=== PATIENT | male | born 1985 | race Caucasian/White ===

== ENCOUNTER → 2016-09-26 | Outpatient (CLI) | payer MEDICAID ==
--- NOTE | 2016-09-26 13:29 | MR ---
EXAMINATION TYPE: MR hand LT wo con DATE OF EXAM: 09/26/2016 COMPARISON: NONE HISTORY: sprain of metacarpophalangeal lt thumb, pain, limited movement Standard multiplanar, multisequence MRI departmental protocol Multiplanar, multisequence images of the the left thumb were acquired. Diffusion weighted imaging was performed. FINDINGS: The ACL is intact. There is thickening of the RCA L. At the MCL insertion on the metacarpal , there is some cystic change within the metacarpal head. There is some mild remodeling change in the first MCP joint. IMPRESSION: 1. INTACT UCL. 2. THICKENED RCL WITH PSEUDOCYSTIC CHANGE AT ITS INSERTION UPON THE METACARPAL HEAD SUGGESTS OLD TRAU MA OR RECURRENT TRAUMA. 3. MILD CHANGES OF OSTEOARTHRITIS AT LEFT FIRST MCP JOINT.
== END | disposition home or self-care (01) ==
LOC: RADMRIMAIN 07:14
PROVIDERS: ATTEND Orthopaedic Surgery
DX: M19.042 Primary osteoarthritis, left hand (principal); M25.842 Other specified joint disorders, left hand

== ENCOUNTER → 2017-04-08 | Outpatient (CLI) | payer MEDICAID ==
--- NOTE | 2017-04-08 08:55 | MR ---
MRI CERVICAL SPINE: CLINICAL HISTORY: Cervicalgia per order. Headache with neck pain for 3 years per patient. TECHNIQUE: Multiplanar, multisequence imaging of the cervical spine is performed without IV contrast. COMPARISON: MRI cervical spine September 29, 2013. Cervical spine x-ray August 16, 2013. FINDINGS: Sagittal images of the cervical spine show the craniocervical junction to remain within nor mal limits. There is better visualization of few small mucous retention cysts or polyps in the inferi or left maxillary sinus on sagittal image 1. The cervical and upper thoracic spinal cord is normal i n course, caliber, and signal. Vertebral alignment is anatomic. The vertebral body and intravertebr al disk heights are normal. No large posterior disc herniations are seen on sagittal images. The bon e marrow signal intensity is within normal limits. No significant spurring is present. Axial images show there is broad disc protrusion mildly effacing anterior thecal sac at C5-C6 level, bilateral neural foramina are minimally narrowed. Axial images otherwise are unremarkable. IMPRESSION: Small disc herniation C5-C6 level otherwise unremarkable study.
== END | disposition home or self-care (01) ==
LOC: RADMRIMAIN 08:16
PROVIDERS: ATTEND Psychiatry & Neurology Neurology
DX: M50.222 Other cervical disc displacement at C5-C6 level (principal)
CPT/HCPCS: 72141

== ENCOUNTER → 2018-06-25 | Outpatient (CLI) | payer MEDICAID ==
--- NOTE | 2018-06-26 11:57 | MR ---
EXAMINATION TYPE: MR shoulder RT wo con DATE OF EXAM: 06/25/2018 COMPARISON: None HISTORY: Pain in right shoulder TECHNIQUE: Multiplanar, multisequence imaging of the right shoulder is performed without contrast. FINDINGS: Rotator Cuff: There is a bursal surface tear of the insertional fibers of the supraspinatus in their midportion measuring 0.6 x 1.0 cm. There is slight fraying of the articular surface fibers anteriorly such as on coronal PD fat-sat image 12. The infraspinatus demonstrates very minimal tendinopathy with alteration of the intrinsic fiber signa l. The subscapularis and teres minor are unremarkable in signal and morphology. Acromioclavicular Joint: Mild acromioclavicular arthropathy is seen as capsular hypertrophy, slight d ownsloping of the acromion and small marginal osteophytes. No significant internal impingement of the supraspinatus. Glenohumeral Joint: No significant joint space narrowing. Labrum: The labrum appears grossly intact given limitation of non-arthrogram study. Biceps Tendon: The long head of biceps is in normal location within bicipital groove. Bone marrow signal: No focal abnormal marrow signal is appreciated. Other: Minimal amount of fluid is seen within the subdeltoid/subacromial bursa. IMPRESSION: 1. Low-grade partial-thickness bursal surface tear of the mid insertional fibers of the supraspinatus measuring 0.6 x 1.0 cm. 2. Mild fraying of the anterior insertional fibers of the supraspinatus indicative of mild tendinopat hy. Very minimal tendinopathy of the infraspinatus is also seen. 3. Trace amount of fluid in the subdeltoid/subacromial bursa that may clinically correlate with bursi tis.
== END | disposition home or self-care (01) ==
LOC: RADMRIMAIN 14:52
PROVIDERS: ATTEND Orthopaedic Surgery
DX: M75.111 Incomplete rotator cuff tear or rupture of right shoulder, not specified as traumatic (principal); M67.813 Other specified disorders of tendon, right shoulder

== ENCOUNTER → 2018-07-08 | Outpatient (CLI) | payer MEDICAID ==
[2018-07-08 11:39] LABS: Basophils % (A) 1 %; Eosinophils # (A) 0.2 k/uL (0-0.7); Eosinophils % (A) 3 %; HCT 50.5 % (39.0-53.0); Lymphocytes # (A) 2.2 k/uL (1.0-4.8); Lymphocytes % (A) 39 %; MCH 29.9 pg (25.0-35.0); MCHC 33.7 g/dL (31.0-37.0); MCV 88.7 fL (80.0-100.0); Mean Platelet Volume 7.3; Monocytes # (A) 0.3 k/uL (0-1.0); Monocytes % (A) 5 %; Neutrophils # (A) 2.9 k/uL (1.3-7.7); Neutrophils % (A) 52 %; Platelet Count 246 k/uL (150-450); RBC 5.69 m/uL (4.30-5.90); RDW 13.8 % (11.5-15.5); WBC 5.6 k/uL (3.8-10.6)
[2018-07-08 19:57] LABS: Anion Gap 6.5 mmol/L (4.00-12.00); Carbon Dioxide 29.5 mmol/L (21.6-31.8); Potassium 4.2 mmol/L (3.5-5.5)
== END ==
LOC: LABWHC1 10:44
PROVIDERS: ATTEND Orthopaedic Surgery
DX: Z01.812 Encounter for preprocedural laboratory examination (principal); M75.41 Impingement syndrome of right shoulder
CPT/HCPCS: 36415; 80051; 85025

== ENCOUNTER 2018-07-15 06:22 | Day surgery (SDC) | payer MEDICAID ==
[2018-07-13 16:05] VITALS: BMI 24.4
--- NOTE | 2018-07-14 13:05 | HP ---
HISTORY AND PHYSICAL DATE OF SURGERY: 07/15/2018 Davian Rodriguez is a 33-year-old patient seen with progressive right shoulder pain. Treatment options were discussed. He elected to proceed with arthroscopy. Consent was obtained. PAST MEDICAL HISTORY: Noncontributory. PAST SURGICAL HISTORY: Lasix surgery. MEDICATIONS: [id number] vitamins. ALLERGIES: None. SOCIAL HISTORY: Denies tobacco use. PHYSICAL EVALUATION OF THE RIGHT SHOULDER: Flexion is 150 degrees, abduction is 120 degrees, external rotation is 60 degrees. Some weakness. Impingement sign is positive at 100 degrees. Distal neurovascular exam is intact. RADIOGRAPHS OF THE RIGHT SHOULDER: Revealed a type 2 anterior acromion. MRI of the right shoulder revealed a partial rotator cuff tear. IMPRESSION: Right shoulder impingement with rotator cuff tear. PLAN: Right shoulder arthroscopy with subacromial decompression, possible arthroscopic rotator cuff repair and debridement. EVE / LAINEY: [id number] /
[~2018-07-15 06:22] MED LIST: DEXAMETHASONE SOD PHOSPHATE 10 MG/ML 1 ML VIAL IV ONE; HYDROmorphone 0.5 MG/0.5 ML SYRINGE IVP PRN; LIDOCAINE 1% 20 ML VIAL (10MG/ML) FOR IV START INTRADERMA PRN; ONDANSETRON 4 MG/2 ML VIAL IVP ONE; SCOPOLAMINE 1.5MG/72HR PATCH TRANSDERM ONE; ceFAZolin IN SWFI 2 GM/20 ML SYRINGE IVP ONE
[2018-07-15] MEDS: LACTATED RINGERS 1,000 ML IV SCH ×2 (07:00→10:00)
[2018-07-15] MEDS ORDERED: MIDAZOLAM 2 MG/2 ML VIAL IV ONE (07:23)
--- NOTE | 2018-07-15 07:36 | P.ONQ ---
Anesthesiology Proc Note - PNB - Peripheral Nerve Block Performed Right Interscalene Single Time Out Performed: Yes Procedure Start Time: :24 Procedure Stop Time: :30 Indication: Acute Post-Operative Pain, Requested by physician (Dr Mehta) Sedation Type: Sedate with meaningful contact maintained Preparation: Sterile Prep Position: Supine Catheter: None Needle Types: On-Q Needle Size: 50mm (2") Needle Gauge: 20 Technique: Ultrasound Injectate: 0.5% Ropivacaine (see comment for volume) (30 mls) Blood Aspirated: No Pain Paresthesia on Injection Noted: No Resistance on Injection: Normal Events: Uneventful and Well Tolerated
[2018-07-15] MEDS ORDERED: MIDAZOLAM 2 MG/2 ML VIAL ONE (07:55)
[2018-07-15] MEDS ORDERED: PROPOFOL 10 MG/ML 20 ML VIAL IV ONE (07:55)
[2018-07-15] MEDS ORDERED: fentaNYL (PF) 50 MCG/ML 2 ML AMP ONE (07:55)
[2018-07-15] MEDS ORDERED: DEXAMETHASONE SOD PHOS (MDV) 100 MG/10 ML VIAL ONE (07:55)
[2018-07-15] MEDS ORDERED: LIDOCAINE 1% INJ 10MG/ML (20 ML MDV) ONE (07:55)
[2018-07-15] MEDS ORDERED: SUCCINYLCHOLINE CHLORIDE 100 MG/5 ML SYR IV ONE (07:55)
[2018-07-15] MEDS ORDERED: ROPIVACAINE 5 MG/ML 30 ML VIAL ONE (07:55)
[2018-07-15] MEDS ORDERED: ONDANSETRON 4 MG/2 ML VIAL ONE (07:55)
[2018-07-15 09:30] VITALS: TEMP 97
--- NOTE | 2018-07-15 09:35 | P.OP ---
Date of Procedure: 07/15/18 Preoperative Diagnosis: Right shoulder impingement Postoperative Diagnosis: 1. Right shoulder rotator cuff tear 2. Right shoulder impingement 3. Right shoulder acromioclavicular joint osteoarthritis 4. Right shoulder superficial anterior labral tear Procedure(s) Performed: 1. Right shoulder arthroscopic rotator cuff repair 2. Right shoulder arthroscopic subacromial decompression 3. Right shoulder arthroscopic Davey procedure 4. Right shoulder arthroscopic debridement labral tear Implants: 14.75 Arthrex swivel lock anchor Anesthesia: GETA, regional (Interscalene block) Surgeon: Juan Carlos Mehta Manager Entry #1: Kanu Rosales Estimated Blood Loss (ml): 10 Pathology: none sent Condition: stable Disposition: PACU Indications for Procedure: 33-year-old patient seen with progressive right shoulder pain. After having treatment options discussed, he elected to proceed with arthroscopy. Operative Findings: See description of procedure Description of Procedure: Patient underwent an interscalene block by department of anesthesia FOR postoperative pain management. The patient was then taken to the operative suite. The patient underwent a general anesthetic by the department of anesthesia. The patient was placed into a lateral position and secured. There was appropriate padding of the bony prominence. Right shoulder was then prepped and draped in normal sterile orthopedic fashion. We placed the extremity in 10 pounds of longitudinal traction. A posterior incision was now made for a posterior working portal site. The trocar and cannula were inserted into the glenohumeral joint. Arthroscopy was initiated. Spinal needle was now inserted anteriorly, to ascertain the anterior working portal site. An incision was now made in that area, a trocar was inserted followed by a probe. There was superficial labral tear involving the anterior labrum. There was an area of grade 1/2 chondromalacia in the central portion of the glenoid with no ost eochondral tears present. The biceps appeared stable. I could visualize rotator cuff tear from the glenohumeral side. I debrided that superficial labral tear down to stable tissue. The residual labrum was probed and found to be stable. Instruments removed from glenohumeral joint. Utilizing the posterior working portal site, the trocar and cannula were inserted into the subacromial space. Arthroscopy initiated. I made an incision 2 fingerbreadths lateral to the acromion. I introduced my trocar followed by my ArthroCare ablator. I now began ablating thick subacromial bursal tissue, which exposed the undersurface of the anterior acromion. There was diminished subacromial space. There was a very prominent anterior acromion. A motorized bur was introduced and a subacromial decompression was performed. I also excised some osteophytes off the inferior aspect of the distal clavicle. The AC joint was visualized and noted to be fairly arthritic. The motorized bur was introduced in the anterior portal site and a Davey procedure was performed without difficulty, decompressing the AC joint nicely. I turned my attention to the rotator cuff. There was a 11.5 cm rotator cuff tear. I debrided the margins getting down to stable tendon tissue. The defect now measured 1.5 cm. It was freely mobile over the footprint. I introduced my motorized bur and abraded the footprint area, getting some petechial bleeding. I passed 2 everted mattress sutures through good bites of rotator cuff tendon. With the assistance Efrain MARIE I repaired the tendon utilizing one single 4.75 Arthrex swivel lock anchor. All residual suture limbs were now clipped. We had good compression of the tendon along the entire footprint. I injected 1 mL Renue intra-articular. Instruments now removed from the portal sites. All portal sites were approximated with nylon suture. Sterile dressings were applied followed by a shoulder immobilizer. Kanu MARIE assisted in this complex case. The patient was awakened, transferred to a bed, and taken to recovery in stable condition.
[2018-07-15] MEDS ORDERED: MEPERIDINE 50 MG/ML SYRINGE IVP ONE (09:44)
[2018-07-15 11:23] VITALS: BP 130/85; PULSE 85; RESP 16
== END 2018-07-15 11:57 | disposition home or self-care (01) ==
LOC: OR 06:22
PROVIDERS: ATTEND Orthopaedic Surgery
DX: M75.101 Unspecified rotator cuff tear or rupture of right shoulder, not specified as traumatic (principal); M75.41 Impingement syndrome of right shoulder; M19.011 Primary osteoarthritis, right shoulder; S43.491A Other sprain of right shoulder joint, initial encounter; K21.9 Gastro-esophageal reflux disease without esophagitis; Z87.891 Personal history of nicotine dependence; Z79.899 Other long term (current) drug therapy; Z88.1 Allergy status to other antibiotic agents; Z91.011 Allergy to milk products; Z91.048 Other nonmedicinal substance allergy status
CPT/HCPCS: 29827; 29826; 29824; 64415; C1713; C1765; J2250; J1100 ×2; J2175; J2405; J2001; J3010; J2795; J0330; J2704; J0690

== ENCOUNTER → 2019-11-17 | Outpatient (CLI) | payer MEDICAID ==
[2019-11-17 08:52] LABS: Basophils % (A) 1 %; Eosinophils # (A) 0.2 k/uL (0-0.7); Eosinophils % (A) 5 %; HCT 49.7 % (39.0-53.0); HGB 16.1 gm/dL (13.0-17.5); Lymphocytes # (A) 1.6 k/uL (1.0-4.8); Lymphocytes % (A) 38 %; MCH 29.7 pg (25.0-35.0); MCHC 32.3 g/dL (31.0-37.0); MCV 91.8 fL (80.0-100.0); Mean Platelet Volume 7.9; Monocytes # (A) 0.3 k/uL (0-1.0); Monocytes % (A) 7 %; Neutrophils % (A) 46 %; Platelet Count 231 k/uL (150-450); RBC 5.41 m/uL (4.30-5.90); WBC 4.3 k/uL (3.8-10.6)
[2019-11-17 18:11] LABS: African American GFR (CKD) 90.3 (60.0-200.0); Albumin 4.3 g/dL (3.80-4.90); Albumin/Globulin Ratio 1.72 (1.60-3.17); Anion Gap 7.1 mmol/L (4.00-12.00); BUN/Creat Ratio 16.67 Ratio (12.00-20.00); Calcium 9.4 mg/dL (8.7-10.3); Carbon Dioxide 28.9 mmol/L (21.6-31.8); Chol/HDL Ratio 3.08; Globulin 2.5 g/dL (1.6-3.3); LDL Cholesterol,Calculated 66.8 mg/dL (0.0-131.0); Non-African American GFR(CKD) 77.9 (60.0-200.0); Potassium 4.3 mmol/L (3.5-5.5); Total Bilirubin 1.1 mg/dL (0.2-1.2); Total Protein 6.8 g/dL (6.2-8.2); VLDL Calculation 16.2 mg/dL (5.00-40.00)
== END | disposition home or self-care (01) ==
LOC: LABWHC1 08:09
PROVIDERS: ATTEND Internal Medicine
DX: Z00.00 Encounter for general adult medical examination without abnormal findings (principal)
CPT/HCPCS: 36415; 80053; 80061; 84443; 85025

== ENCOUNTER 2020-06-21 21:34 | Emergency (ER) | payer MEDICAID, OTHER ==
[2020-06-21 21:41] VITALS: RESP 18; TEMP 98.1
--- NOTE | 2020-06-21 22:07 | ED ---
Lower Extremity Injury HPI - General Chief Complaint: Extremity Injury, Lower Stated Complaint: [facility]HS-Right ankle injury Time Seen by Provider: 06/21/20 21:58 Source: patient Mode of arrival: ambulatory Limitations: no limitations - History of Present Illness Initial Comments: Patient is 35-year-old man who presents for evaluation of right ankle injury. He was at work approximately 6 PM. He stepped in to about a 6 inch hole and inverted his right ankle. Patient did take ibuprofen 400 mg and states that it didn't give a little relief. He declines further analgesics here. He indicates pain at the lateral malleolus. Complaint: ankle injury Onset/Timin -: hour(s) Injury: Ankle: Right Type of Injury: inversion Place: work Severity: moderate Improves With: NSAID Worsens With: weight bearing Context: walking Associated Symptoms: swelling, able to partially bear weight Treatments Prior to Arrival: bandage, NSAIDS - Related Data Home Medications Medication Instructions Recorded Confirmed Fexofenadine HCl [Norma Allergy] 180 mg PO QAM 11/01/13 07/15/18 Triamcinolone Acetonide [Nasacort 2 spray EA NOSTRIL QAM PRN 11/01/13 07/15/18 Aq] Fish Oil/Dha/Epa [Fish Oil 1,200 1 cap PO QAM 08/16/15 07/15/18 mg Fish Oil] Previous Rx's Medication Instructions Recorded HYDROcodone/APAP 7.5-325MG [[place] 1 each PO Q6HR PRN #28 tab 07/15/18 7.5] Ibuprofen [Motrin] 600 mg PO Q8HR PRN #20 tab 06/21/20 Allergies Allergy/AdvReac Type Severity Reaction Status Date / Time egg AdvReac Abdominal Verified 06/21/20 21:41 Pain gluten AdvReac Unknown Verified 06/21/20 21:41 milk AdvReac Abdominal Verified 06/21/20 21:41 Pain Milk Containing Products AdvReac Abdominal Verified 06/21/20 21:41 [Dairy] Pain Review of Systems ROS Statement: Those systems with pertinent positive or pertinent negative responses have been documented in the HPI. ROS Other: All systems not noted in ROS Statement are negative. Respiratory: Denies: cough, dyspnea Cardiovascular: Denies: chest pain, palpitations Musculoskeletal: Reports: joint swelling, arthralgia Skin: Denies: lesions Neurological: Denies: weakness, numbness Past Medical History Past Medical History: Asthma, GI Bleed Additional Past Medical History / Comment(s): HX ELEVATED LIVER ENZYMES., HX GI BLEEDING CAUSED BY FOOD ALLERGIES., ENVIRONMENTAL ALLERGIES, NECK PAIN, PAIN RIGHT SHOULDER. History of Any Multi-Drug Resistant Organisms: None Reported Additional Past Surgical History / Comment(s): LASIK EYE SURGERY., COLONOSCOPY. , BRONCHOSCOPY-(POSSIBLE ASPIRATION ALMOND), WISDOM TEETH Past Anesthesia/Blood Transfusion Reactions: No Reported Reaction Past Psychological History: No Psychological Hx Reported Smoking Status: Never smoker Past Alcohol Use History: Occasional Past Drug Use History: None Reported - Past Family History Mother Family Medical History: No Reported History General Exam Limitations: no limitations General appearance: alert, in no apparent distress Cardiovascular Exam: Present: other (Dorsalis pedis pulse is normal in strength. There is good capillary refill throughout the right foot) Right Knee exam: Present: normal inspection, full ROM. Absent: tenderness, swelling Lower Leg exam: Present: normal inspection, full ROM. Absent: tenderness, swelling Ankle exam: Present: full ROM, tenderness (Lateral malleolus), swelling (Lateral malleolus). Absent: abrasion, laceration, ecchymosis, deformity, crepitus, dislocation, erythema Foot/Toe exam: Present: normal inspection, full ROM. Absent: tenderness, swelling, abrasion, laceration, ecchymosis, deformity, crepitus, dislocation, erythema, amputation, puncture wound, tenderness at base of 5th metatarsal Neurovascular tendon exam: Present: no vascular compromise. Absent: motor deficit, sensory deficit, tendon deficit Neurological exam: Absent: motor sensory deficit (No sensorimotor deficit throughout the right lower 70) Skin exam: Present: warm, dry, intact, normal color. Absent: rash Course Vital Signs 06/21/20 21:37 Temperature 98.1 F Pulse Rate 77 Respiratory 18 Rate Blood Pressure 105/65 O2 Sat by Pulse 96 Oximetry Disposition Clinical Impression: Right ankle sprain Disposition: HOME SELF-CARE Condition: Good Instructions (If sedation given, give patient instructions): Ankle Sprain (ED) Prescriptions: Ibuprofen [Motrin] 600 mg PO Q8HR PRN #20 tab PRN Reason: Pain Is patient prescribed a controlled substance at d/c from ED?: No Referrals: Nagi Palm MD [Primary Care Provider] - 1-2 days
--- NOTE | 2020-06-21 22:15 | XR ---
EXAMINATION TYPE: XR ankle complete RT DATE OF EXAM: 06/21/2020 COMPARISON: NONE HISTORY: Ankle pain TECHNIQUE: 3 views FINDINGS: There is soft tissue swelling over the lateral malleolus. Ankle mortise is anatomic. I see no fracture nor dislocation. IMPRESSION: Soft tissue swelling. No fracture seen.
[2020-06-21 22:52] VITALS: BP 106/82; PULSE 72
== END 2020-06-21 22:37 | disposition home or self-care (01) ==
LOC: EC 21:34
DX: S93.401A Sprain of unspecified ligament of right ankle, initial encounter (principal); Z91.012 Allergy to eggs; Z91.011 Allergy to milk products; Z91.048 Other nonmedicinal substance allergy status; X50.1XXA Overexertion from prolonged static or awkward postures, initial encounter
CPT/HCPCS: 73610; 99283; 29515; L4350

== ENCOUNTER → 2020-12-26 | Outpatient (CLI) | payer MEDICAID ==
--- NOTE | 2020-12-26 10:46 | XR ---
EXAMINATION TYPE: XR lumbar spine 2 or 3V DATE OF EXAM: 12/26/2020 Comparison: 08/16/2013 Clinical History: 35-year-old male R20.0 numbness L leg Findings: 5 lumbar type vertebral bodies. Mild degenerative disc disease throughout; in the lower thoracic and upper lumbar spine, there is mild disc space narrowing and mild endplate spondylosis. Small Schmorl's nodes are noted at L2-L3. Mild disc space narrowing also noted at L5-S1. Vertebral body heights are preserved and alignment is maintained. Impression: Mild degenerative disc disease. No vertebral compression collapse or malalignment.
== END | disposition home or self-care (01) ==
LOC: RADXRMAIN 10:25
PROVIDERS: ATTEND Internal Medicine
DX: M51.36 Other intervertebral disc degeneration, lumbar region (principal)
CPT/HCPCS: 72100

== ENCOUNTER → 2021-08-20 | Outpatient (CLI) | payer MEDICAID ==
--- NOTE | 2021-08-20 09:29 | P.CONS ---
History of Present Illness - Reason for Consult Consult date: 08/20/21 - Chief Complaint Right buttock pain - History of Present Illness This is a 36-year-old gentleman with a few months history of right buttock pain which started when he was hiking. The pain at that time went down to the right knee however it is restricted now to the right buttock area. He has tried massage therapy and chiropractor therapy but the pain is still bothering him. The pain increases by physical activity. The patient denies any bowel or bladder dysfunction or any paresthesia in the lower extremities also he denies any weakness in the lower extremities. Review of Systems Constitutional: Denies chills, Denies fever Ears, nose, mouth and throat: Denies headache, Denies sore throat Cardiovascular: Denies chest pain, Denies shortness of breath Respiratory: Denies cough Musculoskeletal: Reports as per HPI Integumentary: Denies pruritus, Denies rash Neurological: Reports as per HPI Past Medical History Past Medical History: Asthma, GI Bleed Additional Past Medical History / Comment(s): HX ELEVATED LIVER ENZYMES., HX GI BLEEDING CAUSED BY FOOD ALLERGIES., ENVIRONMENTAL ALLERGIES, NECK PAIN, PAIN RIGHT SHOULDER. History of Any Multi-Drug Resistant Organisms: None Reported Additional Past Surgical History / Comment(s): LASIK EYE SURGERY., COLONOSCOPY. , BRONCHOSCOPY-(POSSIBLE ASPIRATION ALMOND), WISDOM TEETH Past Anesthesia/Blood Transfusion Reactions: No Reported Reaction Past Psychological History: No Psychological Hx Reported Smoking Status: Never smoker Past Alcohol Use History: Occasional Additional Past Alcohol Use History / Comment(s): SMOKED 5 YEARS, 1 PPD, QUIT 2006. Past Drug Use History: None Reported - Past Family History Mother Family Medical History: No Reported History Medications and Allergies Home Medications Medication Instructions Recorded Confirmed Type Fexofenadine HCl [Norma Allergy] 180 mg PO QAM 11/01/13 07/15/18 History Triamcinolone Acetonide [Nasacort 2 spray EA NOSTRIL QAM PRN 11/01/13 07/15/18 History Aq] Fish Oil/Dha/Epa [Fish Oil 1,200 1 cap PO QAM 08/16/15 07/15/18 History mg Fish Oil] HYDROcodone/APAP 7.5-325MG [[place] 1 each PO Q6HR PRN #28 tab 07/15/18 Rx 7.5] Ibuprofen [Motrin] 600 mg PO Q8HR PRN #20 tab 06/21/20 Rx Allergies Allergy/AdvReac Type Severity Reaction Status Date / Time egg AdvReac Abdominal Verified 06/21/20 21:41 Pain gluten AdvReac Unknown Verified 06/21/20 21:41 milk AdvReac Abdominal Verified 06/21/20 21:41 Pain Milk Containing Products AdvReac Abdominal Verified 06/21/20 21:41 [Dairy] Pain Physical Exam - Constitutional General appearance: average body habitus - EENT Eyes: PERRLA - Integumentary Integumentary: no calor, no cellulitis, no cyanotic, no decreased turgor, no flushed, no jaundiced, no normal, no normal turgor, no pale, no rash, no ulcer - Neurologic Neuro exam of the lower extremities is within normal limits Positive tenderness in the right buttock area Internal and external rotation of the hip joints did not elicit any pain Satish's test mildly positive on the right side Mild right sacral joint tenderness Positive tenderness along the track of the right piriformis muscle No greater trochanter tenderness right side Straight leg raising test is negative bilaterally Neurologic: CNII-XII intact - Musculoskeletal Musculoskeletal: gait normal - Psychiatric Psychiatric: A&O x's 3, appropriate affect, intact judgment & insight Assessment and Plan Plan: This is a 36-year-old healthy gentleman with what seems to be right piriformis muscle spasm. The differential diagnosis also his right sacroiliitis. I think the patient may benefit from getting right piriformis muscle steroid injection under fluoroscopic ultrasound guidance. The procedure was explained to the patient and he was agreeable to it If this procedure does not help the patient then we'll plan on doing sacroiliac joint steroid injection on the right side I thank you for the referral
[2021-08-20 09:35] VITALS: BP 142/85; PULSE 82; RESP 18
== END ==
LOC: PNWHC3 09:06
PROVIDERS: ATTEND Anesthesiology
DX: M54.41 Lumbago with sciatica, right side (principal); J45.909 Unspecified asthma, uncomplicated; Z91.011 Allergy to milk products; Z91.012 Allergy to eggs; Z91.018 Allergy to other foods; Z79.891 Long term (current) use of opiate analgesic
CPT/HCPCS: 99211

== ENCOUNTER 2021-08-21 09:00 | Day surgery (SDC) | payer MEDICAID ==
[~2021-08-21 09:00] MED LIST changes: -DEXAMETHASONE SOD PHOSPHATE 10 MG/ML 1 ML VIAL IV ONE; -HYDROmorphone 0.5 MG/0.5 ML SYRINGE IVP PRN; +LACTATED RINGERS 1,000 ML IV SCH; -LIDOCAINE 1% 20 ML VIAL (10MG/ML) FOR IV START INTRADERMA PRN; -ONDANSETRON 4 MG/2 ML VIAL IVP ONE; -SCOPOLAMINE 1.5MG/72HR PATCH TRANSDERM ONE; -ceFAZolin IN SWFI 2 GM/20 ML SYRINGE IVP ONE
[2021-08-21 09:25] VITALS: RESP 16; TEMP 97.5
[2021-08-21] MEDS ORDERED: methylPREDNISolone ACETATE 40 MG/ML 1 ML VIAL ONE (09:29)
[2021-08-21] MEDS ORDERED: ROPIVACAINE 5MG/ML 20ML VIAL ONE (09:29)
--- NOTE | 2021-08-21 09:41 | P.PCN ---
Date of Procedure: 08/21/21 Description of Procedure: Procedure performed: Right piriformis injection under ultrasound guidance. Preoperative piriformis syndrome Postoperative piriformis syndrome NO sedation was used. Patient was examined and evaluated in the preoperative area with regards to right buttock and leg pain. After consent was taken, the patient was brought back to the procedure room and laid in the prone position. Chlorhexidine was used to cleanse the area. Ultrasound was used to identify the piriformis and the right gluteal region. At that point a 25-gauge spinal needle was inserted in plain under guidance to avoid any neurovascular structures and to evaluate medication spreading. An image was saved to the chart. Sciatic nerve was identified below the piriformis muscle. After negative aspiration, 5 ML's of 0.5% ropivacaine along with 40 mg of Depo-Medrol were injected into the piriformis muscle. The needle was removed intact. The site was cleansed and bandages placed. The patient was sent to the postoperative area and will follow up in clinic for further evaluation
[2021-08-21 09:54] VITALS: BP 121/77; PULSE 60
== END 2021-08-21 10:02 | disposition home or self-care (01) ==
LOC: ORPAIN 09:00
PROVIDERS: ATTEND Hospitalist
DX: G57.00 Lesion of sciatic nerve, unspecified lower limb (principal)
CPT/HCPCS: 20552; J1030; J2795

== ENCOUNTER → 2022-01-28 | Outpatient (CLI) | payer BC, MEDICAID ==
--- NOTE | 2022-01-28 13:14 | XR ---
EXAMINATION TYPE: XR lumbar spine with bend/flex, 5 views DATE OF EXAM: 01/28/2022 Comparison: 12/26/2020 Clinical History: 36-year-old male M25.551 PAIN IN RIGHT HIP Findings: 5 lumbar type vertebral bodies. Mild multilevel degenerative disc disease with mild endplate on the l ordosis and mild disc space narrowing. Accentuated lower lumbar lordosis. Vertebral body heights are preserved and alignment is maintained. No dynamic subluxation on flexion or extension views. Mild fac et arthropathy lower lumbar spine. Impression: Mild multilevel degenerative disc disease. Mild facet arthropathy lower lumbar spine. No vertebral pa rtial collapse or malalignment. No evidence for dynamic subluxation on flexion-extension.
--- NOTE | 2022-01-28 13:40 | XR ---
EXAMINATION TYPE: XR Hip Complete RT DATE OF EXAM: 01/28/2022 Comparison: None Clinical History: 36-year-old male M25.551 PAIN IN RIGHT HIP Findings: No acute fracture, subluxation, dislocation. No periostitis or osteolysis. Impression: No acute osseous abnormality seen.
== END | disposition home or self-care (01) ==
LOC: RADXRMAIN 10:13
PROVIDERS: ATTEND Internal Medicine
DX: M51.36 Other intervertebral disc degeneration, lumbar region (principal); M47.816 Spondylosis without myelopathy or radiculopathy, lumbar region; M25.551 Pain in right hip
CPT/HCPCS: 72114; 73502

== ENCOUNTER → 2022-03-27 | Outpatient (CLI) | payer BC ==
--- NOTE | 2022-03-27 09:38 | US ---
EXAMINATION TYPE: US liver DATE OF EXAM: 03/27/2022 COMPARISON: NONE CLINICAL HISTORY: R17, R74.01. Elevated LFT's TECHNIQUE: Multiple sonographic images of the right upper quadrant are obtained. FINDINGS: EXAM MEASUREMENTS: Liver Length: 15.1 cm Gallbladder Wall: 0.2 cm CBD: 0.3 cm Right Kidney: 9.9 x 4.4 x 5.3 cm Pancreas: wnl, tail obscured by overlying bowel gas Liver: Heterogeneous , no suspicious masses or ductal dilation. Gallbladder: wnl Evidence for sonographic Trujillo's sign: No CBD: wnl Right Kidney: wnl IMPRESSION: 1. No evidence for acute process. 2. Hepatic steatosis.
== END | disposition home or self-care (01) ==
LOC: RADUSWWP 07:44
PROVIDERS: ATTEND Internal Medicine
DX: K76.0 Fatty (change of) liver, not elsewhere classified (principal); R74.01 Elevation of levels of liver transaminase levels
CPT/HCPCS: 76705

== ENCOUNTER → 2022-03-28 | Outpatient (CLI) | payer BC ==
--- NOTE | 2022-03-29 05:05 | MR ---
EXAMINATION TYPE: MR knee RT wo con DATE OF EXAM: 03/28/2022 COMPARISON: None HISTORY: Right knee pain for 3 months. Multiplanar multiecho imaging of the right knee performed with no contrast. The anterior and posterior cruciate ligaments are intact there is mild knee joint effusion. The colla teral ligaments are intact. The medial and lateral menisci appear intact. No fracture seen. No evidence of bone edema. IMPRESSION: There is mild knee joint effusion. Otherwise negative MR scan of the right knee.
== END | disposition home or self-care (01) ==
LOC: RADMRIMAIN 16:20
PROVIDERS: ATTEND Orthopaedic Surgery
DX: M25.461 Effusion, right knee (principal)

== ENCOUNTER 2023-05-06 17:30 | Observation (INO) | payer BC ==
[2023-05-06] MEDS ORDERED: NALOXONE 0.4 MG/ML 1 ML VIAL IV PRN (19:15)
--- NOTE | 2023-05-06 19:15 | ED ---
General Adult HPI - General Chief complaint: Arrhythmia/Palpitations Stated complaint: heart palpitations Time Seen by Provider: 05/06/23 17:59 Source: patient Mode of arrival: ambulatory Limitations: no limitations - History of Present Illness Initial comments: Dictation was produced using [employer] dictation software. please excuse any grammatical, word or spelling errors. Chief Complaint: 38-year-old male transferred from [facility] for tachycardia History of Present Illness: Patient 38-year-old male he was seen at [facility] for tachycardia. He wears a smart watch noted his heart rate would go up into the 150s. Patient has no cardiac comorbidities. He drink his usual amount of coffee. He has been dealing a lot of neck issues and neck stiffness. He has been taking prednisone for it. Seen at [facility] where he was worked up found to have normal labs normal imaging studies. [facility] physician recommended transfer to [facility] however he preferred to be transferred to our facility due to location being near his house. The ROS documented in this emergency department record has been reviewed and confirmed by me. Those systems with pertinent positive or negative responses have been documented in the HPI. All other systems are other negative and/or noncontributory. - Related Data Home Medications Medication Instructions Recorded Confirmed Fish Oil/Dha/Epa [Fish Oil 1,200 1 cap PO QAM 08/16/15 08/21/21 mg Fish Oil] Multivitamin [Multivitamins Adult 1 tab PO DAILY 08/21/21 08/21/21 Gummies] Allergies Allergy/AdvReac Type Severity Reaction Status Date / Time egg AdvReac Abdominal Verified 05/06/23 17:54 Pain gluten AdvReac Unknown Verified 05/06/23 17:54 milk AdvReac Abdominal Verified 05/06/23 17:54 Pain Milk Containing Products AdvReac Abdominal Verified 05/06/23 17:54 (Dairy) Pain [Dairy] Review of Systems ROS Statement: Those systems with pertinent positive or pertinent negative responses have been documented in the HPI. ROS Other: All systems not noted in ROS Statement are negative. Past Medical History Past Medical History: Asthma, GI Bleed Additional Past Medical History / Comment(s): HX ELEVATED LIVER ENZYMES., HX GI BLEEDING CAUSED BY FOOD ALLERGIES., ENVIRONMENTAL ALLERGIES, NECK PAIN, PAIN RIGHT SHOULDER. History of Any Multi-Drug Resistant Organisms: None Reported Additional Past Surgical History / Comment(s): LASIK EYE SURGERY., COLONOSCOPY. , BRONCHOSCOPY-(POSSIBLE ASPIRATION ALMOND), WISDOM TEETH, right rotator cuff repair. Past Anesthesia/Blood Transfusion Reactions: No Reported Reaction Past Psychological History: No Psychological Hx Reported Smoking Status: Former smoker Past Alcohol Use History: Occasional Past Drug Use History: None Reported - Past Family History Mother Family Medical History: No Reported History General Exam - General Exam Comments Initial Comments: PHYSICAL EXAM: General Impression: Alert and oriented x3, not in acute distress HEENT: Normocephalic atraumatic, extra-ocular movements intact, pupils equal and reactive to light bilaterally, mucous membranes moist. Cardiovascular: Heart regular rate and rhythm Chest: Able to complete full sentences, no retractions, no tachypnea Abdomen: abdomen soft, non-tender, non-distended, no organomegaly Musculoskeletal: Pulses present and equal in all extremities, no peripheral edema Motor: no focal deficits noted Neurological: CN II-XII grossly intact, no focal motor or sensory deficits noted Skin: Intact with no visualized rashes Psych: Normal affect and mood Limitations: no limitations Course Vital Signs 05/06/23 05/06/23 05/06/23 17:49 17:59 18:39 Temperature 98.8 F Pulse Rate 120 H 105 H Respiratory 22 18 Rate Blood Pressure 130/92 146/102 126/98 O2 Sat by Pulse 96 98 Oximetry EKG Findings - EKG Comments: EKG Findings:: My EKG interpretation: Ventricular rate 107, sinus tachycardia,. 140, QRS 95, QTc 378. No [place] prolongation, no QTC prolongation, no ST or T-wave changes noted. Overall, this EKG is unremarkable Medical Decision Making - Medical Decision Making Was pt. sent in by a medical professional or institution (, PA, SMOCKER, urgent care, hospital, or penitentiary...) When possible be specific @ -No Did you speak to anyone other than the patient for history (EMS, parent, family, police, friend...)? What history was obtained from this source @ -Spoke with transferring physician from [facility] Did you review nursing and triage notes (agree or disagree)? Why? @ -I reviewed and agree with nursing and triage notes Were old charts reviewed (outside hosp., previous admission, EMS record, old EKG, old radiological studies, urgent care reports/EKG's, penitentiary records)? Report findings @ -No old charts were reviewed Differential Diagnosis (chest pain, altered mental status, abdominal pain women, abdominal pain men, vaginal bleeding, musculoskeletal, weakness, fever, dyspnea, syncope, headache, dizziness, GI bleed, back pain, seizure, CVA, palpatations, mental health)? @ - Differential Palpitations: Ventricular arrhythmias, atrial arrhythmias, myocardial infarction, anemia, thyrotoxicosis, electrolyte imbalance, hypokalemia, pulmonary embolism, pulmonary disease, drugs, alcohol, anxiety, stress.... This is not meant to be an all-inclusive list. EKG interpreted by me (3pts min.). @ -See above X-rays interpreted by me (1pt min.). @ -None done CT interpreted by me (1pt min.). @ -None done U/S interpreted by me (1pt. min.). @ -None done What testing was considered but not performed or refused? (CT, X-rays, U/S, labs)? Why? @ -None What meds were considered but not given or refused? Why? @ -None Did you discuss the management of the patient with other professionals (professionals i.e. , PA, SMOCKER, lab, RT, psych nurse, social service agency director, feltmaker, teacher, correctional officer chief, spring encaser)? Give summary @ -Case discussed with hospitalist for observation admission Was smoking cessation discussed for >3mins.? @ -No Was critical care preformed (if so, how long)? @ -No Were there social determinants of health that impacted care today? How? (Homelessness, low income, unemployed, alcoholism, drug addiction, transportation, low edu. Level, literacy, decrease access to med. care, usp, rehab)? @ -No Was there de-escalation of care discussed even if they declined (Discuss DNR or withdrawal of care, Hospice)? DNR status @ -No What co-morbidities impacted this encounter? (DM, HTN, Smoking, COPD, CAD, Cancer, CVA, ARF, Chemo, Hep., AIDS, mental health diagnosis, sleep apnea, morbid obesity)? @ -None Was patient admitted / discharged? Hospital course, mention meds given and route, prescriptions, significant lab abnormalities, going to OR and other pertinent info. @ -38-year-old male transferred from [facility] for persistent tachycardia, no obvious source. EKG shows sinus tachycardia. Patient well-appearing at the bedside. Vital signs stable. Transfer documentation was reviewed. Labs and imaging were found to be unremarkable. Electrolytes normal, CTA chest negative for pulmonary embolism. High-sensitivity troponin is negative. Patient will be admitted observation. Pending thyroid studies. Undiagnosed new problem with uncertain prognosis? @ -No Drug Therapy requiring intensive monitoring for toxicity (Heparin, Nitro, Insulin, Cardizem)? @ -No Were any procedures done? @ -No Diagnosis/symptom? Acute, or Chronic, or Acute on Chronic? Uncomplicated (without systemic symptoms) or Complicated (systemic symptoms)? @ -Tachycardia Side effects of treatment? @ -No Exacerbation, Progression, or Severe Exacerbation? @ -No Poses a threat to life or bodily function? How? (Chest pain, USA, [place], pneumonia, PE, COPD, DKA, ARF, appy, cholecystitis, CVA, Diverticulitis, Homicidal, Suicidal, threat to staff... and all critical care pts) @ -No Disposition Clinical Impression: Tachycardia Disposition: ADMITTED IP TO THIS HOSP Condition: Fair Referrals: Jalen Almeida MD [Primary Care Provider] - 1-2 days Decision Time: 19:15
[2023-05-06] MEDS: SODIUM CHLORIDE 0.9% 1,000 ML IV SCH (20:01)
[2023-05-06 20:21] LABS: T4, Free (Free Thyroxine) 1.4 ng/dL (0.78-2.19)
[2023-05-06] MEDS ORDERED: CALCIUM CARBONATE 500 MG CHEWABLE PO PRN (22:40)
[2023-05-06] MEDS ORDERED: ACETAMINOPHEN TAB 325 MG TAB PO PRN (22:40)
[2023-05-06] MEDS: CYCLOBENZAPRINE 10 MG TAB PO PRN (23:06)
[2023-05-07 07:35] VITALS: RESP 19; TEMP 97.8
--- NOTE | 2023-05-07 12:14 | P.CRDCN ---
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 He has a past medical history of allergies, remote history of tobacco use. We have been asked to evaluate the patient for tachycardia. Patient states that he was sitting at his desk at work and his heart rate went up to 153 bpm. He states it was calm day and there was no stress that would cause him to be anxious. He felt jittery and it was hard to get his words out. He states his symptoms lasted all day. He was initially seen at [facility] and then transferred to [facility]. No EKG is available from [place]. Patient states that he has been recently started on Flexeril and a prednisone taper for neck pain. Patient is never had this episode happened before. No cough no fever no chills. No wheezing. He denies any blood in his stools or urine. No dizziness. He states he felt a little lightheaded. No syncopal episode. No history of seizure or CVA. He states he feels better at the time of this evaluation. No history of diabetes, no smoking. Regarding alcohol he has a couple per week. EKG sinus tachycardia at 107 bpm, sinus rhythm 90 beats per minute. Chest x-ray: TSH 0.465. Home cardiac medications: Review Of Systems: At the time of my exam: CONSTITUTIONAL: Denies fever or chills. HEENT: Denies blurred vision, vision changes, or eye pain. Denies hemoptysis CARDIOVASCULAR: Denies chest pain. Denies orthopnea. Denies PND. Denies palpitations RESPIRATORY: Denies shortness of breath. GASTROINTESTINAL: Denies abdominal pain. Denies nausea or vomiting. HEMATOLOGIC: Denies bleeding disorders. GENITOURINARY: Denies any blood in urine. SKIN: Denies pruitis. Denies rash. Physical examination: Gen: This is a 38-year-old male resting in bed, no acute distress. VS: reviewed HEENT: Head is atraumatic, normocephalic. Pupils equal, round. Sclerae is anicteric. NECK: Supple. No JVD. LUNGS: Clear to auscultation. No wheezes or rhonchi. No intercostal retractions. HEART: Regular rate and rhythm. No murmur. ABDOMEN: Soft No tenderness. EXTREMITIES: No pedal edema. No calf tenderness. NEUROLOGICAL: Patient is awake, alert and oriented x3. Assessment: Sinus tachycardia Plan: Obtain 2-D echocardiogram and Doppler study to assess cardiac structure and function If echocardiogram is unremarkable, patient is cleared for discharge from cardiology, no further cardiac workup at this time. Thank you kindly for this consultation. Nurse practitioner note has been reviewed, I agree with documented findings and plan of care. Patient was seen and examined. Past Medical History Past Medical History: Asthma, GI Bleed Additional Past Medical History / Comment(s): HX ELEVATED LIVER ENZYMES., HX GI BLEEDING CAUSED BY FOOD ALLERGIES., ENVIRONMENTAL ALLERGIES, NECK PAIN, PAIN RIGHT SHOULDER. History of Any Multi-Drug Resistant Organisms: None Reported Additional Past Surgical History / Comment(s): LASIK EYE SURGERY., COLONOSCOPY. , BRONCHOSCOPY-(POSSIBLE ASPIRATION ALMOND), WISDOM TEETH, right rotator cuff repair. Past Anesthesia/Blood Transfusion Reactions: No Reported Reaction Past Psychological History: No Psychological Hx Reported Smoking Status: Former smoker Past Alcohol Use History: Occasional Additional Past Alcohol Use History / Comment(s): SMOKED 5 YEARS, 1 PPD, QUIT 2006. Past Drug Use History: None Reported - Past Family History Mother Family Medical History: No Reported History Medications and Allergies Home Medications Medication Instructions Recorded Confirmed Type Acetaminophen Tab [Tylenol] 650 mg PO Q6H PRN 05/06/23 05/06/23 History Cyclobenzaprine [Flexeril] 10 mg PO BID PRN 05/06/23 05/06/23 History Fish Oil(Unknown Dose) 1 cap PO DAILY 05/06/23 05/06/23 History Meloxicam [Mobic] 15 mg PO DIRECTED 05/06/23 05/06/23 History Multivitamins, Thera [Multivitamin 1 tab PO DAILY 05/06/23 05/06/23 History (formulary)] predniSONE See Taper PO DAILY 05/06/23 05/06/23 History Allergies Allergy/AdvReac Type Severity Reaction Status Date / Time egg AdvReac Abdominal Verified 05/06/23 19:24 Pain gluten AdvReac Abdominal Verified 05/06/23 19:24 Pain milk AdvReac Abdominal Verified 05/06/23 19:24 Pain Milk Containing Products AdvReac Abdominal Verified 05/06/23 19:24 (Dairy) Pain [Dairy] Physical Exam Vitals: Vital Signs Temp Pulse Pulse Resp BP BP Pulse Ox 05/07/23 07:00 97.8 F 84 19 130/84 97 05/07/23 02:41 97.4 F L 67 16 121/62 100 05/06/23 22:39 98.0 F 77 15 137/92 95 05/06/23 21:57 101 H 18 132/91 96 05/06/23 21:00 106 H 18 138/101 96 05/06/23 20:00 103 H 18 123/96 96 05/06/23 18:39 126/98 05/06/23 17:59 105 H 18 146/102 98 05/06/23 17:49 98.8 F 120 H 22 130/92 96 Intake and Output 05/06/23 05/07/23 05/07/23 22:59 06:59 14:59 Other: # Voids 1 3 Weight 81.647 kg Results Current Medications Generic Name Dose Route Start Last Admin Trade Name Sabrina PRN Reason Stop Dose Admin Acetaminophen 650 mg 05/06/23 22:40 Acetaminophen Tab 325 Mg Tab PO Q6H PRN Fever and/ or Pain Calcium Carbonate/Glycine 1,000 mg 05/06/23 22:40 Calcium Carbonate 500 Mg Chewable PO QID PRN Heartburn Cyclobenzaprine HCl 10 mg 05/06/23 22:40 05/06/23 23:06 Cyclobenzaprine 10 Mg Tab PO 10 mg BID PRN Administration Muscle Spasm Sodium Chloride 1,000 mls @ 20 mls/hr 05/06/23 19:15 05/06/23 23:07 Saline 0.9% IV Not Given .Q24H LATHA Naloxone HCl 0.2 mg 05/06/23 19:15 Naloxone 0.4 Mg/Ml 1 Ml Vial IV Q2M PRN Opioid Reversal Intake and Output 05/06/23 05/07/23 05/07/23 22:59 06:59 14:59 Other: # Voids 1 3 Weight 81.647 kg
--- NOTE | 2023-05-07 12:48 | CA ---
Transthoracic Echo Report Name: Davian Hernandez Age: 38 Gender: M : 1985 Exam Date: 05/07/2023 10:33 Exam Location: [facility] Ht (in): 71 Wt (lb): 180 Ordering Physician: Carolyn Lucero Attending/Referring Phys: [id number], Jazmine Grounds Worker Yasmani Rod RDCS Procedure CPT: Indications: LVF Cardiac Hx: Technical Quality: Fair Contrast 1: Total Dose (mL): Contrast 2: Total Dose (mL): MEASUREMENTS (Male / Female) Normal Values 2D ECHO LV Diastolic Diameter PLAX 4.3 cm 4.2 - 5.9 / 3.9 - 5.3 cm LV Systolic Diameter PLAX 3.0 cm IVS Diastolic Thickness 1.0 cm 0.6 - 1.0 / 0.6 - 0.9 cm LVPW Diastolic Thickness 0.9 cm 0.6 - 1.0 / 0.6 - 0.9 cm LV Relative Wall Thickness 0.4 Aortic Root Diameter 3.4 cm LA Systolic Diameter LX 3.6 cm 3.0 - 4.0 / 2.7 - 3.8 cm DOPPLER AV Peak Velocity 80.1 cm/s AV Peak Gradient 2.6 mmHg LVOT Peak Velocity 79.2 cm/s LVOT Peak Gradient 2.5 mmHg Mitral E Point Velocity 56.3 cm/s Mitral A Point Velocity 48.8 cm/s Mitral E to A Ratio 1.2 MV Deceleration Time 146.8 ms MV E' Velocity 7.9 cm/s Mitral E to MV E' Ratio 7.1 FINDINGS Left Ventricle Left ventricular ejection fraction is estimated at 55-60 %.normal left ventricular wall motion. Left ventricular cavity size normal. Right Ventricle Normal right ventricular size and function. Right Atrium Right atrium not well visualized. Left Atrium Normal left atrial size. Mitral Valve structurally normal mitral valve. No mitral stenosis, regurgitation or prolapse. Aortic Valve Trileaflet aortic valve.no aortic valve stenosis or regurgitation. Tricuspid Valve Trace tricuspid regurgitation.structurally normal tricuspid valve. Pulmonic Valve Pulmonic valve not well visualized. Pericardium No pericardial effusion. Aorta Normal size aortic root and proximal ascending aorta. CONCLUSIONS 1. Normal left ventricular size and systolic function 2. Trace tricuspid regurgitation Previewed by: Dr. Leora Wyatt MD (Electronically Signed) Final Date: 07 May 2023 12:47
[2023-05-07 14:15] VITALS: BP 126/76; PULSE 97
--- NOTE | 2023-05-08 01:37 | HP ---
HISTORY AND PHYSICAL This is a combined history and physical and discharge summary. CHIEF COMPLAINT: Palpitation. HISTORY OF PRESENT ILLNESS: This is a 38-year-old gentleman with a past medical history of asthma. GI bleed was working and the patient had episode of palpitation with heart rate of 150. The patient came to [facility] and was admitted for further evaluation and treatment. The free T3 was found to be 5.7, slightly more than normal. Cardiology performed a 2D echo with Doppler, which was found to be normal and Cardiology recommended outpatient followup. There is no history of any fever, rigors, or chills at this time. Admission EKG shows sinus tachycardia. PAST MEDICAL HISTORY: Reviewed include asthma, GI bleed, rest of the history and chart is also reviewed. HOME MEDICATIONS: Reviewed include prednisone daily, tapering further neck injury, dose and rest of the medications reviewed. ALLERGIES: Egg, rest of the allergies are noted. FAMILY HISTORY: No history of heart disease or strokes. SOCIAL HISTORY: Remote history of smoking or occasional alcohol. REVIEW OF SYSTEMS: A 14-point review is negative except as mentioned earlier. PHYSICAL EXAMINATION: VITAL SIGNS: Pulse is 84, blood pressure 130/85, and respirations 19. HEENT: Conjunctivae normal. NECK: No jugular venous distention. CARDIOVASCULAR: S1, S2. RESPIRATIONS: n ABDOMEN: Soft, nontender. LEGS: No edema. No swelling. NERVOUS SYSTEM: No focal deficit. JOINTS: No active deforming arthropathy. LABORATORY DATA: Reviewed. ASSESSMENT: 1. Tachycardia for evaluation, possible sinus tachycardia, rule out atrial tachycardia. 2. Minimally elevated free T3, rule out T3 toxicosis or hyperthyroidism. 3. History of asthma. 4. History of GI bleed secondary to food allergies. 5. History of neck pain. RECOMMENDATIONS AND DISCUSSION: This 38-year-old gentleman presented with tachycardia, is currently medically stable. Cardiology evaluated the patient, recommended outpatient followup. I recommended the patient will be discharged, continue to monitor and if the symptoms recur, the patient may require Reveal monitor or continued monitoring. Otherwise for the minimally elevated free T3, I would recommend repeat labs in the outpatient and follow up with Dr. Woodward, the oil tank car cleaner to rule out the possibility of any thyroid abnormalities. Otherwise, will recommend close followup with Dr. Almeida after discharge and discussed with the patient. Further recommendations to follow. MMODL / IJN: [id number] / RASHEEDA
== END 2023-05-07 14:26 | disposition home or self-care (01) ==
LOC: EC 17:30 → 6NMEDSUR 19:16
PROVIDERS: ADMIT Hospitalist; ATTEND Hospitalist
DX: R00.0 Tachycardia, unspecified (principal); R94.6 Abnormal results of thyroid function studies; M43.6 Torticollis; J45.909 Unspecified asthma, uncomplicated; Z91.012 Allergy to eggs; Z91.011 Allergy to milk products; K90.41 Non-celiac gluten sensitivity; Z79.1 Long term (current) use of non-steroidal anti-inflammatories (NSAID); Z79.899 Other long term (current) drug therapy; Z87.891 Personal history of nicotine dependence; Z87.19 Personal history of other diseases of the digestive system
CPT/HCPCS: 99285; 93005; 93306; 84439; 84481; 84443; G0378 ×2

== ENCOUNTER → 2023-05-12 | Outpatient (CLI) | payer BC ==
--- NOTE | 2023-05-12 22:11 | XR ---
EXAMINATION TYPE: XR skull complete DATE OF EXAM: 05/12/2023 COMPARISON: NONE HISTORY: 38-year-old male M54.81 OCCIPITAL NEURALGIA,G44.86 CERVICOGENIC KOVACS TECHNIQUE: 4 views FINDINGS: No calvarial fracture. No periostitis. A few scattered venous lakes are noted. Normal appea laya to the cranial sutures. There is some rightward nasal septal deviation noted. Scattered dental amalgam. IMPRESSION: No specific calvarial abnormality seen.
== END | disposition home or self-care (01) ==
LOC: RADXRMAIN 14:35
PROVIDERS: ATTEND Physician Assistant Medical
DX: M54.81 Occipital neuralgia (principal); G44.86 Cervicogenic headache
CPT/HCPCS: 70260

== ENCOUNTER → 2023-05-12 | Outpatient (CLI) | payer BC ==
[2023-05-12 14:35] VITALS: BP 128/62; PULSE 66; RESP 15; TEMP 98.3
--- NOTE | 2023-05-12 14:45 | P.PAINPG ---
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 Pain level is provoked at 8 /10 in intensity, constant, predominantly axial, localized in the cervical spine, dull in character w occasional shooting towards the top of the head. Pain is provoked by lifting or overactivity. Pain is alleviated with alternating heat & ice, medications (Flexeril, Ibu), manual massage , repositioning and rest. Cervical disability score at 21. Interventional pain procedures completed include Denies Patient is currently on Ibu, Flexeril Patient denies any side effects of the medication(s), denies excessive drowsiness or sleepiness, denies suicidal ideation and reports that the current pain medication is helping to control the pain and improve activities of daily living. Patient denies any motor or sensory deficits. Patient denies any fever or night sweats, denies any change in the bowel movements or urination. Physical Examination: -Constitutional: Cooperative. Not in acute distress . - Neurologic: Cranial nerve II to XII intact. No focal neurological deficits. - Psychatric: Alert & oriented x 3. Matching mood & appropriate affect. Judgment and insight intact. - Musculoskeletal: Cervical spine: BL JAVIER TTP Muscle bulk/ tone/ strength in the bilateral upper extremities normal Vertebral body tenderness to palpation over Spurling test positive Distraction test positive Facet loading test positive TTP Thoracic spine Muscle bulk / tone/ strength in the bilateral paraspinal muscles normal Vertebral body tender to palpation over Facet loading test positive TTP Lumbar spine: Motor bulk/ tone/ strength lower extremities , thigh and legs : 5/5 Deep tendon reflexes : Normal Knee Jerk. Normal Ankle Jerk . Vertebral body tenderness to palpation over Lumbar Facet Loading Test positive Straight Leg Raise: positive at 30 degrees right side/ left side Gaenslen's Test positive Sacral spine : Severe tenderness over the Sacroiliac joint: right side / left side Range of motion: Flexion of the lumbar spine <60 degrees Range of motion: Extension of the lumbar spine <20 degrees Gaenslen's Test positive R / L Ramakrishna test: positive right side / left side Thigh Thrust Test positive R / L Sacral Thrust Test positive R/ L Assessment and plan: Chronic neck pain secondary to cervical DDD, spondylosis with facet arthropathy without myelopathy Recommendation of cervical x ray and PT x 6 wks M 54.81, G 44.86 . May need additional testing if clinically indicated. All questions answered. I have spent less than 30 minutes on patient care today. Dr Alves was available by phone for the evaluation of this patient. The time was used to review the medical records including relevant urine studies and Prescription history (MAPs), review of the available imaging, evaluation and examination of the patient, coordination of care with the medical staff and if applicable referring physicians, as well as creation of the medical record PQRS Narrative: Smoking Status Former smoker Hx Alcohol Use (MH) No: Occationally Home Medications: Ambulatory Orders Acetaminophen Tab [Tylenol] 650 mg PO Q6H PRN 05/06/23 Cyclobenzaprine [Flexeril] 10 mg PO BID PRN 05/06/23 Fish Oil(Unknown Dose) 1 cap PO DAILY 05/06/23 Meloxicam [Mobic] 15 mg PO DIRECTED 05/06/23 Multivitamins, Thera [Multivitamin (formulary)] 1 tab PO DAILY 05/06/23 predniSONE See Taper PO DAILY 05/06/23 Controlled Substance Measures - Controlled Substance Measures Is patient prescribed a controlled substance at discharge?: No
== END ==
LOC: PNWHC3 13:49
PROVIDERS: ATTEND Specialist
DX: M50.30 Other cervical disc degeneration, unspecified cervical region (principal); M47.812 Spondylosis without myelopathy or radiculopathy, cervical region; G89.29 Other chronic pain; Z87.891 Personal history of nicotine dependence; Z91.012 Allergy to eggs; Z91.011 Allergy to milk products; Z91.018 Allergy to other foods
CPT/HCPCS: 99211

== ENCOUNTER → 2023-05-31 | Outpatient (CLI) | payer BC ==
--- NOTE | 2023-05-31 08:19 | MR ---
EXAMINATION TYPE: MR brain wo con DATE OF EXAM: 05/31/2023 COMPARISON: NONE HISTORY: Occipital neuralgia, tension headaches TECHNIQUE: Multiplanar, multisequence imaging of the brain and brainstem is performed without IV cont rast. FINDINGS: Diffusion weighted images demonstrate no evidence of a recent infarct or other diffusion abnormality. There is no extraaxial fluid collection or significant white matter signal abnormality. The ventricu lar system and cisternal spaces are normal in size and appearance. The brain volume is age appropria te. Midline structures demonstrate normal morphology. The craniocervical junction appears within normal limits. Normal vascular flow voids are present. There is 1.7 cm mucous retention cyst or polyp in the inferior left maxillary sinus otherwise visualized sinuses are clear and the globes are intact. IMPRESSION: No significant white matter changes. Chronic inferior left maxillary sinus disease otherw ise unremarkable study.
== END | disposition home or self-care (01) ==
LOC: RADMRIMAIN 07:28
PROVIDERS: ATTEND Specialist
DX: J34.89 Other specified disorders of nose and nasal sinuses (principal); M54.81 Occipital neuralgia; M54.12 Radiculopathy, cervical region; G44.209 Tension-type headache, unspecified, not intractable
CPT/HCPCS: 70551

== ENCOUNTER → 2023-06-05 | Outpatient (CLI) | payer BC ==
--- NOTE | 2023-06-09 12:25 | P.PAINPG ---
Objective - Vital Signs Vital signs: Intake & Output 06/04/23 06/05/23 06/05/23 18:59 06:59 18:59 Weight 83.915 kg PQRS Measure Charge Sheet Comment: A 38 yr old male with a history of severe and chronic neck pain x 5 mo secondary to cervical strain, occipital neuralgia & cervicogenic KOVACS presents today for evaluation. Pain level is provoked at 6 /10 in intensity, constant, predominantly axial, localized in the cervical spine, dull in character w occasional shooting towards the top of the head. Pain is provoked by lifting or over activity. Pain is alleviated with alternating heat & ice, medications, manual massage , repositioning and rest. Cervical disability score at 21. Interventional pain procedures completed include Denies Patient is currently on Ibu, Mobic, Flexeril Patient denies any side effects of the medication(s), denies excessive drowsines s or sleepiness, denies suicidal ideation and reports that the current pain medication is helping to control the pain and improve activities of daily living. Patient denies any motor or sensory deficits. Patient denies any fever or night sweats, denies any change in the bowel movements or urination. Physical Examination: -Constitutional: Cooperative. Not in acute distress . - Neurologic: Cranial nerve II to XII intact. No focal neurological deficits. - Psychatric: Alert & oriented x 3. Matching mood & appropriate affect. Judgment and insight intact. - Musculoskeletal: Cervical spine: BL JAVIER TTP Muscle bulk/ tone/ strength in the bilateral upper extremities normal Vertebral body tenderness to palpation over Spurling test positive Distraction test positive Facet loading test positive TTP Thoracic spine Muscle bulk / tone/ strength in the bilateral paraspinal muscles normal Vertebral body tender to palpation over Facet loading test positive TTP Lumbar spine: Motor bulk/ tone/ strength lower extremities , thigh and legs : 5/5 Deep tendon reflexes : Normal Knee Jerk. Normal Ankle Jerk . Vertebral body tenderness to palpation over Lumbar Facet Loading Test positive Straight Leg Raise: positive at 30 degrees right side/ left side Gaenslen's Test positive Sacral spine : Severe tenderness over the Sacroiliac joint: right side / left side Range of motion: Flexion of the lumbar spine <60 degrees Range of motion: Extension of the lumbar spine <20 degrees Gaenslen's Test positive R / L Ramakrishna test: positive right side / left side Thigh Thrust Test positive R / L Sacral Thrust Test positive R/ L Imaging: MRI noncontrast of the brain from 05/31/2023 reviewed Assessment and plan: Chronic neck pain secondary to occipital neuralgia and cervicogenic KOVACS Recommendation of BL JAVIER injection #1. May need a series of injections for optimal pain relief. Risk, benefits of procedure discussed and patient verbalized understanding. Protocol for discontinuation/continuation of medication surrounding procedure discussed. All questions answered. I have spent less than 30 minutes on patient care today. Dr Alves was available by phone for the evaluation of this patient. The time was used to re view the medical records including relevant urine studies and Prescription history (MAPs), review of the available imaging, evaluation and examination of the patient, coordination of care with the medical staff and if applicable referring physicians, as well as creation of the medical record PQRS Narrative: Smoking Status Former smoker Hx Alcohol Use (MH) No: Occationally Home Medications: Ambulatory Orders Acetaminophen Tab [Tylenol] 650 mg PO Q6H PRN 05/06/23 Cyclobenzaprine [Flexeril] 10 mg PO BID PRN 05/06/23 Fish Oil(Unknown Dose) 1 cap PO DAILY 05/06/23 Meloxicam [Mobic] 15 mg PO DIRECTED 05/06/23 Multivitamins, Thera [Multivitamin (formulary)] 1 tab PO DAILY 05/06/23 predniSONE See Taper PO DAILY 05/06/23 Controlled Substance Measures - Controlled Substance Measures Is patient prescribed a controlled substance at discharge?: No
[2023-06-09 12:56] VITALS: TEMP 98.7
== END | disposition home or self-care (01) ==
LOC: PNWHC3 14:15
PROVIDERS: ATTEND Specialist
DX: M54.2 Cervicalgia (principal); M54.81 Occipital neuralgia; G44.86 Cervicogenic headache; Z91.018 Allergy to other foods; Z91.011 Allergy to milk products; Z87.891 Personal history of nicotine dependence
CPT/HCPCS: 99211

== ENCOUNTER 2023-07-01 12:59 | Day surgery (SDC) | payer BC ==
[2023-07-01] MEDS ORDERED: DEXAMETHASONE SOD PHOSPHATE 10 MG/ML 1 ML VIAL ONE (13:18)
[2023-07-01] MEDS ORDERED: ROPIVACAINE 5MG/ML 20ML VIAL ONE (13:18)
--- NOTE | 2023-07-01 13:24 | P.PCN ---
Date of Procedure: 07/01/23 Description of Procedure: Pre-operative diagnosis: greater occipital neuralgia Post Operative Diagnosis: occipital neuralgia Procedure: bilateral greater occipital nerve block under ultrasound - Ultrasound used to place needle and avoid vascular structures. Anesthesia: local with 1% lidocaine and IV sedation per nurse anesthesia PROCEDURE INDICATION: The patient with neck pain and headache secondary to occipital neuralgia unresponsive to conservative treatments. PROCEDURE DESCRIPTION / TECHNIQUE: The patient was seen and identified in the preoperative area. Risks, benefits, complications, and alternatives were discussed with the patient, the patient agreed to proceed with the procedure and signed the consent. Vital signs remained stable throughout the procedure. Patient was taken to the OR and time out was completed. The patient was placed in the sitting position on the procedure table. The cervical area and occiptial area were prepped with alcohol swab. Critical pause was taken. Vital signs were closely monitored during the procedure. Conscious sedation was used during the procedure to decrease patients anxiety. Right side: Ultrasound was used and the occipital artery was visualized exiting the skull about 2-3 cm lateral and 2cm inferior to the occipital protuberance On the right side. Then after negative aspiration, a 25g needed was introduced under ultrasound, negative aspiration confirmed and then 3 ml of the block solution containing 2.5 ml of PF Ropivaciane 0.5% and dexamethasone (total of 5mg) was injected after negative aspiration. Needle was withdrawn intact. Left side: Ultrasound was used and the occipital artery was visualized exiting the skull about 2-3 cm lateral and 2cm inferior to the occipital protuberance On the left side. Then after negative aspiration, a 25g needed was introduced under ultrasound, negative aspiration confirmed and then 3 ml of the block solution containing 2.5 ml of PF Ropivaciane 0.5% and dexamethasone (total of 5mg) was injected after negative aspiration. Needle was withdrawn intact. Patient tolerated procedure well. No acute complications.
[2023-07-01 13:40] VITALS: TEMP 97.8
[2023-07-01 14:22] VITALS: BP 135/90; PULSE 91; RESP 16
== END 2023-07-01 13:50 | disposition home or self-care (01) ==
LOC: ORPAIN 12:59
PROVIDERS: ATTEND Hospitalist
DX: M54.81 Occipital neuralgia (principal)
CPT/HCPCS: 64405; J1100; J2795

== ENCOUNTER → 2023-08-11 | Outpatient (CLI) | payer BC ==
[2023-08-11 08:39] VITALS: BP 141/88; PULSE 76; RESP 16; TEMP 97.9
--- NOTE | 2023-08-11 14:55 | P.PAINPG ---
PQRS Measure Charge Sheet Comment: A 38 yr old male with a history of severe and chronic neck pain > 6 mo secondary to cervical strain, occipital neuralgia & cervicogenic KOVACS presents today for evaluation s/p BL JAVIER injection #1. Pt states he experienced 50 % pain relief x 6 wks s/p procedure. Pain level is provoked at 6 /10 in intensity, con stant, predominantly axial, localized in the upper cervical spine, dull in character w occasional shooting towards the top of the head. Pain is provoked by lifting or over activity. Pain is alleviated with alternating heat & ice, medications, manual massage , repositioning and rest. Cervical disability score at 20. Interventional pain procedures completed include BL JAVIER x1 Patient is currently on Ibu, Mobic, Flexeril Patient denies any side effects of the medication(s), denies excessive drowsiness or sleepiness, denies suicidal ideation and reports that the current pain medication is helping to control the pain and improve activities of daily living. Patient denies any motor or sensory deficits. Patient denies any fever or night sweats, denies any change in the bowel movements or urination. Physical Examination: -Constitutional: Cooperative. Not in acute distress . - Neurologic: Cranial nerve II to XII intact. No focal neurological deficits. - Psychatric: Alert & oriented x 3. Matching mood & appropriate affect. Judgment and insight intact. - Musculoskeletal: Cervical spine: BL JAVIER TTP Muscle bulk/ tone/ strength in the bilateral upper extremities normal Vertebral body tenderness to palpation over Spurling test positive Distraction test positive Facet loading test positive TTP Thoracic spine Muscle bulk / tone/ strength in the bilateral paraspinal muscles normal Vertebral body tender to palpation over Facet loading test positive TTP Lumbar spine: Motor bulk/ tone/ strength lower extremities , thigh and legs : 5/5 Deep tendon reflexes : Normal Knee Jerk. Normal Ankle Jerk . Vertebral body tenderness to palpation over Lumbar Facet Loading Test positive Straight Leg Raise: positive at 30 degrees right side/ left side Gaenslen's Test positive Sacral spine : Severe tenderness over the Sacroiliac joint: right side / left side Range of motion: Flexion of the lumbar spine <60 degrees Range of motion: Extension of the lumbar spine <20 degrees Gaenslen's Test positive R / L Ramakrishna test: positive right side / left side Thigh Thrust Test positive R / L Sacral Thrust Test positive R/ L Imaging: MRI noncontrast of the brain from 05/31/2023 reviewed Assessment and plan: Chronic neck pain secondary to occipital neuralgia and cervicogenic KOVACS Recommendation of NICOL HERRERA 2. Will follow up w Dr Cruz's office to explore additional treatment options. May need a series of injections for optimal pain relief. Risk, benefits of procedure discussed and patient verbalized understanding. Protocol for discontinuation/continuation of medication surrounding procedure discussed. All questions answered. I have spent less than 30 minutes on patient care today. Dr Alves was available by phone for the evaluation of this patient. The time was used to review the medical records including relevant urine studies and Prescription history (MAPs), review of the available imaging, evaluation and examination of the patient, coordination of care with the medical staff and if applicable referring physicians, as well as creation of the medical record PQRS Narrative: Smoking Status Former smoker Hx Alcohol Use (MH) No: Occationally Home Medications: Ambulatory Orders Acetaminophen Tab [Tylenol] 650 mg PO Q6H PRN 05/06/23 Cyclobenzaprine [Flexeril] 10 mg PO BID PRN 05/06/23 Fish Oil(Unknown Dose) 1 cap PO DAILY 05/06/23 Meloxicam [Mobic] 15 mg PO DAILY PRN 05/06/23 Multivitamins, Thera [Multivitamin (formulary)] 1 tab PO DAILY 05/06/23 Otc Tums 500 mg PO DIRECTED PRN 06/24/23 Controlled Substance Measures - Controlled Substance Measures Is patient prescribed a controlled substance at discharge?: No
== END ==
LOC: PNWHC3 07:51
PROVIDERS: ATTEND Specialist
DX: M54.81 Occipital neuralgia (principal); G89.29 Other chronic pain; G44.86 Cervicogenic headache; Z87.891 Personal history of nicotine dependence; Z91.012 Allergy to eggs; Z91.011 Allergy to milk products; Z91.018 Allergy to other foods
CPT/HCPCS: 99211

== ENCOUNTER → 2023-10-01 | Outpatient (CLI) | payer BC ==
--- NOTE | 2023-10-01 13:49 | MR ---
EXAMINATION TYPE: MR cervical spine wo con DATE OF EXAM: 10/01/2023 COMPARISON: MRI brain 05/31/23, cervical spine radiograph 08/11/2023, MR cervical spine 04/08/2017 HISTORY: Neck pain / Headache x8 years TECHNIQUE: Multiplanar, multisequence images of the cervical spine were acquired without contrast. C2-C3: No evidence for degenerative disc disease. No disc bulge/herniation or protrusion. No Canal stenosis. Foramina are patent bilaterally. C3-C4: No evidence for degenerative disc disease. No disc bulge/herniation or protrusion. No Canal stenosis. Foramina are patent bilaterally. C4-C5: No evidence for degenerative disc disease. No disc bulge/herniation or protrusion. No Canal stenosis. Foramina are patent bilaterally. C5-C6: Stable minimal disc bulge without significant effacement of the anterior thecal sac. No neural foraminal stenosis. C6-C7: No evidence for degenerative disc disease. No disc bulge/herniation or protrusion. No Canal stenosis. Foramina are patent bilaterally. C7-T1: No evidence for degenerative disc disease. No disc bulge/herniation or protrusion. No Canal stenosis. Foramina are patent bilaterally. Cervical segments are intact. There is normal alignment. Cervical spinal cord is of normal signal. Craniovertebral junction relationships are within normal limits. Similar visualization of a few sma ll mucous retention cyst in the inferior left maxillary sinus. IMPRESSION: Stable minimal degenerative disc disease at C5-C6. No evidence for disc herniation or significant sixto tral canal or neuroforaminal stenosis.
== END | disposition home or self-care (01) ==
LOC: RADMRIMAIN 07:47
PROVIDERS: ATTEND Orthopaedic Surgery
DX: M47.812 Spondylosis without myelopathy or radiculopathy, cervical region (principal); M50.322 Other cervical disc degeneration at C5-C6 level
CPT/HCPCS: 72141

== ENCOUNTER → 2024-10-15 | Outpatient (CLI) | payer BC | END | disposition home or self-care (01) | LOC: LABWHC1 10:10 | PROVIDERS: ATTEND Orthopaedic Surgery | DX: Z53.9 Procedure and treatment not carried out, unspecified reason (principal) ==